=== PATIENT | male | born 1970 | race Native Hawaiian/Other Pacific Islander ===

== ENCOUNTER 2022-11-03 13:28 | Emergency (ER) | payer OTHER ==
[~2022-11-03] VITALS: Ht 185.4 cm; Wt 95.3 kg
[~2022-11-03 13:28] MED LIST: CELEXA40 MG PO; CYCL10TA35 PO; DOCU100C10 PO; METO50TA27 PO; OXYC5TAB53 PO; SEROQUEL100 MG OR; XANAX XR1 MG OR
[2022-11-03 13:33] VITALS: TEMP 98
[2022-11-03 14:12] VITALS: BP 158/90
== END 2022-11-03 15:03 | disposition home or self-care (01) ==
LOC: ED 13:28
DX: U07.1 COVID-19 (principal); J06.9 Acute upper respiratory infection, unspecified
CPT/HCPCS: 87651; 99282